=== PATIENT | female | born 1960 | race Caucasian/White ===

== ENCOUNTER 2021-11-19 13:46 | Inpatient (IN) ==
[2021-11-19] MEDS ORDERED: Ondansetron 4 MG/2 ML VIAL IVP PRN (17:36)
[2021-11-19] MEDS ORDERED: Naloxone 0.4 MG/ML INJ IVP PRN (17:36)
[2021-11-19] MEDS ORDERED: *HR* Dextrose 50 % in Water (Syg) 50 ML SYRINGE IVP PRN (17:52)
[2021-11-19] MEDS ORDERED: Dextrose Gel 15 GM/37.5 ML TUBE PO PRN ×2 (17:52)
[2021-11-19] MEDS ORDERED: D5% in Water 1,000 ML IVC PRN (17:52)
[2021-11-19] MEDS ORDERED: 0.9 % Sodium Chloride 1,000 ML IVC SCH (18:00)
[2021-11-19 18:47] LABS: Basophils % 0.2 %; Eosinophils % 0.3 %; Hematocrit 38.1 % (35.3-44.9); Hemoglobin 12.1 g/dL (11.5-15.4); Immature Granulocytes % 0.4 % (0-4); Lymphocytes # 1.5 K/mcL (0.6-4.6); Lymphocytes % 11.1 %; Mean Corpuscular HGB Conc 31.8 g/dL (31.6-35.5); Mean Corpuscular Hemoglobin 25.7 pg (28.0-33.3); Mean Corpuscular Volume 81.1 fL (83.0-100.0); Mean Platelet Volume 8.9 fL (9.4-12.4); Monocytes # 0.7 K/mcL (0.0-1.3); Monocytes % 5.7 %; Neutrophils # 10.8 K/mcL (1.6-8.9); Platelet Count 375 K/mcL (140-400); Segmented Neutrophils % 82.3 %; White Blood Count 13.1 K/mcL (4.3-11.1)
[2021-11-19 18:52] LABS: INR 1.3; Prothrombin Time 14.3 Seconds (9.4-12.1)
[2021-11-19 19:02] LABS: Alanine Aminotransferase 16 Units/L (7-52); Albumin 3.1 g/dL (3.5-5.7); Alkaline Phosphatase 77 Units/L (34-104); Amylase 13 Units/L (29-103); Aspartate Amino Transferase 20 Units/L (13-39); BUN/Creatinine Ratio 16 (6-26); Bilirubin,Total 0.3 mg/dL (0.3-1.0); Blood Urea Nitrogen 17 mg/dL (6-20); Calcium 8.7 mg/dL (8.6-10.3); Carbon Dioxide 25 mEq/L (23-29); Chloride 103 mEq/L (98-107); Globulin 3.2 g/dL (2.4-3.5); Glucose 173 mg/dL (70-105); Lipase 12 Units/L (11-82); Osmolality,Calculated 286 (280-300); Potassium 3.9 mEq/L (3.5-5.1); Sodium 135 mEq/L (136-145); Total Protein 6.3 g/dL (6.4-8.9); eGFR For African Americans > 60 (> 60); eGFR For Non-African Americans 51 (> 60)
[2021-11-19 19:03] LABS: Magnesium 1.9 mg/dL (1.6-2.6)
[2021-11-19 19:17] LABS: Thyroid Stimulating Hormone 1.158 mcIU/mL (0.340-5.600)
[2021-11-19] MEDS: Insulin LISPRO 300 UNITS/3 ML VIAL SUBQ SCH (19:26)
[2021-11-19] MEDS: Ipratropium/Albuterol Neb 3 ML IH SCH (19:56)
[2021-11-19 20:45] LABS: Estimated Average Glucose 134 mg/dl; Hemoglobin A1C 6.3 %
[2021-11-19] MEDS: levoFLOXacin 750 MG/150 ML 750 MG/150 ML BAG IVPB SCH (21:42)
[2021-11-19] MEDS: *HR* Heparin 5,000 UNIT/ML VIAL SQ SCH (21:54)
[2021-11-19 23:31] LABS: Bilirubin,Urine Negative (Negative); Blood,Urine Large (Negative); Clarity,Urine Turbid (Clear); Color,Urine Yellow (Yellow); Glucose,Urine (UA) 30 mg/dL (Normal); Hyaline Casts,Urine Few per lpf (None Seen); Ketones,Urine 20 mg/dL (Negative); Leukocyte Esterase,Urine Small (Negative); Mucus,Urine Many per lpf (None-Few); Nitrite,Urine Negative (Negative); PH,Urine 5.5 pH Units (5.0-8.0); Protein,Urine 70 mg/dL (Neg-Trace); RBC,Urine TNTC per hpf (0-3); Specific Gravity,Urine 1.024 (1.010-1.025); Squamous Epithelial Cell,Urine Few per hpf (None-Few); Urobilinogen,Urine Normal (Normal); WBC,Urine 15-30 per hpf (0-3)
[2021-11-20] MEDS: MethylPREDNISolone 40 MG/ML VIAL IVP SCH ×2 (00:22→08:28)
[2021-11-20] MEDS: MetroNIDAZOLE 500 MG/100 ML 500 MG/100 ML BAG IVPB SCH ×4 (00:24→23:37)
[2021-11-20] MEDS: Insulin LISPRO 300 UNITS/3 ML VIAL SUBQ SCH ×5 (00:25→20:52)
[2021-11-20 02:06] LABS: Hematocrit 36.5 % (35.3-44.9); Hemoglobin 11.6 g/dL (11.5-15.4); Mean Corpuscular HGB Conc 31.8 g/dL (31.6-35.5); Mean Corpuscular Hemoglobin 25.9 pg (28.0-33.3); Mean Corpuscular Volume 81.5 fL (83.0-100.0); Mean Platelet Volume 8.9 fL (9.4-12.4); Platelet Count 331 K/mcL (140-400); Red Blood Count 4.48 M/mcL (3.82-4.97); Red Cell Distribution Width 14.2 % (11.5-14.5); White Blood Count 12.3 K/mcL (4.3-11.1)
[2021-11-20 02:20] LABS: BUN/Creatinine Ratio 15 (6-26); Blood Urea Nitrogen 17 mg/dL (6-20); Calcium 8.4 mg/dL (8.6-10.3); Carbon Dioxide 24 mEq/L (23-29); Chloride 103 mEq/L (98-107); Chol/HDL Ratio 5.3 (0-4.9); Cholesterol 147 mg/dL (< 200); Glucose 155 mg/dL (70-105); HDL Cholesterol 28 mg/dL (40-59); LDL Cholesterol,Calculated 90 mg/dL (< 100); Osmolality,Calculated 285 (280-300); Potassium 4.1 mEq/L (3.5-5.1); Sodium 135 mEq/L (136-145); Triglycerides 143 mg/dL (< 150); eGFR For African Americans > 60 (> 60); eGFR For Non-African Americans 50 (> 60)
[2021-11-20] MEDS: Ipratropium/Albuterol Neb 3 ML IH SCH ×4 (03:58→21:25)
[2021-11-20] MEDS: *HR* Heparin 5,000 UNIT/ML VIAL SQ SCH ×3 (05:27→20:45)
[2021-11-20] MEDS ORDERED: 0.9 % Sodium Chloride 1,000 ML IVC SCH (07:45)
[2021-11-20] MEDS: Pantoprazole 40 MG VIAL IVP SCH (08:29)
[2021-11-20] MEDS ORDERED: Iopamidol - 370 500 ML MLS IVP ONE (13:39)
[2021-11-20] MEDS ORDERED: Iopamidol - 370 500 ML MLS PO ONE (16:45)
[2021-11-20] MEDS: levoFLOXacin 750 MG/150 ML 750 MG/150 ML BAG IVPB SCH (20:41)
[2021-11-21] MEDS: Ipratropium/Albuterol Neb 3 ML IH SCH ×4 (04:06→22:16)
[2021-11-21] MEDS: *HR* Heparin 5,000 UNIT/ML VIAL SQ SCH ×3 (05:37→19:42)
[2021-11-21 06:34] LABS: Basophils % 0.1 %; Hematocrit 38.6 % (35.3-44.9); Hemoglobin 12.4 g/dL (11.5-15.4); Immature Granulocytes % 0.8 % (0-4); Mean Corpuscular HGB Conc 32.1 g/dL (31.6-35.5); Mean Corpuscular Hemoglobin 25.6 pg (28.0-33.3); Mean Corpuscular Volume 79.8 fL (83.0-100.0); Mean Platelet Volume 8.8 fL (9.4-12.4); Monocytes # 1.2 K/mcL (0.0-1.3); Monocytes % 5.3 %; Neutrophils # 18.8 K/mcL (1.6-8.9); Platelet Count 438 K/mcL (140-400); Red Blood Count 4.84 M/mcL (3.82-4.97); Segmented Neutrophils % 85.8 %
[2021-11-21 06:35] LABS: Lymphocytes # 1.8 K/mcL (0.6-4.6); White Blood Count 21.9 K/mcL (4.3-11.1)
[2021-11-21 06:54] LABS: BUN/Creatinine Ratio 18 (6-26); Blood Urea Nitrogen 19 mg/dL (6-20); Calcium 9.1 mg/dL (8.6-10.3); Carbon Dioxide 26 mEq/L (23-29); Chloride 101 mEq/L (98-107); Glucose 213 mg/dL (70-105); Osmolality,Calculated 289 (280-300); Potassium 3.9 mEq/L (3.5-5.1); Sodium 135 mEq/L (136-145); eGFR For African Americans > 60 (> 60); eGFR For Non-African Americans 54 (> 60)
[2021-11-21] MEDS: MetroNIDAZOLE 500 MG/100 ML 500 MG/100 ML BAG IVPB SCH ×3 (08:28→22:53)
[2021-11-21] MEDS: Insulin LISPRO 300 UNITS/3 ML VIAL SUBQ SCH ×4 (08:28→19:41)
[2021-11-21] MEDS: Furosemide 20 MG TABLET PO SCH (08:29)
[2021-11-21] MEDS: Aspirin Enteric Coated 81 MG Tablet PO SCH (08:29)
[2021-11-21] MEDS ORDERED: predniSONE 20 MG TABLET PO SCH (09:00)
[2021-11-21] MEDS: Pantoprazole 40 MG VIAL IVP SCH (09:32)
[2021-11-21] MEDS: levoFLOXacin 750 MG/150 ML 750 MG/150 ML BAG IVPB SCH (19:47)
[2021-11-22 01:32] LABS: Basophils % 0.1 %; Hemoglobin 12.2 g/dL (11.5-15.4); Immature Granulocytes % 0.6 % (0-4); Lymphocytes # 1.1 K/mcL (0.6-4.6); Lymphocytes % 6.2 %; Mean Corpuscular HGB Conc 32.1 g/dL (31.6-35.5); Mean Corpuscular Hemoglobin 25.5 pg (28.0-33.3); Mean Corpuscular Volume 79.5 fL (83.0-100.0); Mean Platelet Volume 8.9 fL (9.4-12.4); Monocytes % 5.3 %; Neutrophils # 15.8 K/mcL (1.6-8.9); Platelet Count 401 K/mcL (140-400); Red Blood Count 4.78 M/mcL (3.82-4.97); Red Cell Distribution Width 14.3 % (11.5-14.5); Segmented Neutrophils % 87.8 %
[2021-11-22 01:42] LABS: Alanine Aminotransferase 25 Units/L (7-52); Albumin 3.2 g/dL (3.5-5.7); Alkaline Phosphatase 71 Units/L (34-104); Aspartate Amino Transferase 29 Units/L (13-39); BUN/Creatinine Ratio 17 (6-26); Bilirubin,Total 0.2 mg/dL (0.3-1.0); Blood Urea Nitrogen 18 mg/dL (6-20); Calcium 9.1 mg/dL (8.6-10.3); Carbon Dioxide 29 mEq/L (23-29); Chloride 101 mEq/L (98-107); Globulin 3.1 g/dL (2.4-3.5); Glucose 212 mg/dL (70-105); Lactate Dehydrogenase 447 Units/L (140-271); Osmolality,Calculated 288 (280-300); Sodium 135 mEq/L (136-145); Total Protein 6.3 g/dL (6.4-8.9); eGFR For African Americans > 60 (> 60); eGFR For Non-African Americans 52 (> 60)
[2021-11-22] MEDS: Ipratropium/Albuterol Neb 3 ML IH SCH ×3 (04:14→15:20)
[2021-11-22] MEDS: *HR* Heparin 5,000 UNIT/ML VIAL SQ SCH ×2 (05:48→15:49)
[2021-11-22] MEDS: Furosemide 20 MG TABLET PO SCH (08:29)
[2021-11-22] MEDS: Pantoprazole 40 MG VIAL IVP SCH (08:29)
[2021-11-22] MEDS: Aspirin Enteric Coated 81 MG Tablet PO SCH (08:29)
[2021-11-22] MEDS: MetroNIDAZOLE 500 MG/100 ML 500 MG/100 ML BAG IVPB SCH (08:36)
[2021-11-22] MEDS: Insulin LISPRO 300 UNITS/3 ML VIAL SUBQ SCH ×2 (08:43→11:32)
[2021-11-22] MEDS ORDERED: predniSONE 20 MG TABLET PO SCH (09:00)
[2021-11-22] MEDS ORDERED: Iopamidol - 370 500 ML MLS IVP ONE (10:37)
[2021-11-22 14:16] VITALS: BP 147/82; PULSE 98; TEMP 98; O2SAT 96
[2021-11-22] MEDS ORDERED: GI Cocktail 40 ML EACH PO ONE (14:31)
[2021-11-22] MEDS ORDERED: metroNIDAZOLE 500 MG TABLET PO SCH (15:00)
[2021-11-22 16:07] LABS: RBC,Pleural Fluid 5000 RBC/mcL
[2021-11-22 16:08] LABS: Total Protein,Pleural Fluid 3.9 g/dL
[2021-11-22 17:06] LABS: Appearance of Pleural Fl Cloudy (Clear)
[2021-11-22 17:34] LABS: Basophils,Pleural Fluid 0 %; Eosinophils,Pleural Fluid 0 %
[2021-11-22] MEDS ORDERED: levoFLOXacin 750 MG TABLET PO SCH (19:00)
[2021-11-23] MEDS ORDERED: levoFLOXacin 750 MG TABLET PO SCH (09:00)
[2021-12-01 22:34] LABS: Fluid Source for Albumin PLEURAL FL
== END 2021-11-22 17:46 | disposition left against medical advice (07) ==
LOC: 3ANU → SUATTDRO 16:12
PROVIDERS: ADMIT Family Medicine; ATTEND General Practice

== ENCOUNTER 2021-12-09 13:36 | Inpatient (IN) ==
[2021-12-09] MEDS ORDERED: Naloxone 0.4 MG/ML INJ IVP PRN (16:12)
[2021-12-09] MEDS ORDERED: *HR* HYDROcodone/Acet 5/325 mg TABLET PO PRN (16:12)
[2021-12-09] MEDS ORDERED: 0.9 % Sodium Chloride 1,000 ML IVC SCH (16:15)
[2021-12-09] MEDS ORDERED: Ipratropium/Albuterol Neb 3 ML IH PRN (16:19)
[2021-12-09] MEDS ORDERED: D5% in Water 1,000 ML IVC PRN (16:23)
[2021-12-09] MEDS ORDERED: *HR* Dextrose 50 % in Water (Syg) 50 ML SYRINGE IVP PRN (16:23)
[2021-12-09] MEDS ORDERED: Dextrose Gel 15 GM/37.5 ML TUBE PO PRN ×2 (16:23)
[2021-12-09] MEDS ORDERED: levoFLOXacin 750 MG/150 ML 750 MG/150 ML BAG IVPB ONE (17:00)
[2021-12-09 17:14] LABS: Prothrombin Time 11.4 Seconds (9.4-12.1)
[2021-12-09 17:17] LABS: Activated Partial Thrombo Time 31.2 Seconds (26.0-36.0)
[2021-12-09 17:26] LABS: Albumin 2.9 g/dL (3.5-5.7); Albumin/Globulin Ratio 0.8 (1.1-2.2); Bilirubin,Total 0.3 mg/dL (0.3-1.0); Calcium 8.1 mg/dL (8.6-10.3); Globulin 3.7 g/dL (2.4-3.5); Potassium 5.4 mEq/L (3.5-5.1); Total Protein 6.6 g/dL (6.4-8.9)
[2021-12-09] MEDS: Insulin LISPRO 300 UNITS/3 ML VIAL SUBQ SCH (17:28)
[2021-12-09] MEDS: *HR* Heparin 5,000 UNIT/ML VIAL SQ SCH (17:31)
[2021-12-09] MEDS: *HR* OxyCODONE Immed Rel 5 MG TABLET PO PRN ×2 (17:32→23:38)
[2021-12-09] MEDS: Ondansetron 4 MG/2 ML VIAL IVP PRN (17:43)
[2021-12-09 18:11] LABS: Basophils % 0.2 %; Eosinophils % 0.2 %; Hematocrit 38.3 % (35.3-44.9); Hemoglobin 12.1 g/dL (11.5-15.4); Immature Granulocytes % 0.7 % (0-4); Lymphocytes # 0.9 K/mcL (0.6-4.6); Lymphocytes % 4.9 %; Mean Corpuscular HGB Conc 31.6 g/dL (31.6-35.5); Mean Corpuscular Hemoglobin 25.7 pg (28.0-33.3); Mean Corpuscular Volume 81.3 fL (83.0-100.0); Mean Platelet Volume 8.5 fL (9.4-12.4); Monocytes # 0.8 K/mcL (0.0-1.3); Monocytes % 4.3 %; Neutrophils # 16.3 K/mcL (1.6-8.9); Platelet Count 597 K/mcL (140-400); Red Blood Count 4.71 M/mcL (3.82-4.97); Segmented Neutrophils % 89.7 %; White Blood Count 18.1 K/mcL (4.3-11.1)
[2021-12-09] MEDS: Albumin 25% 25gram/100mL 25 GM/100 ML IV.SOLN IVPB SCH (23:44)
[2021-12-10] MEDS ORDERED: *HR* HYDROmorphone (PF) 1 MG/ML SYRINGE IVP ONE (01:30)
[2021-12-10] MEDS: *HR* Heparin 5,000 UNIT/ML VIAL SQ SCH ×3 (05:59→20:40)
[2021-12-10] MEDS: Insulin LISPRO 300 UNITS/3 ML VIAL SUBQ SCH ×3 (07:29→16:29)
[2021-12-10] MEDS: Albumin 25% 25gram/100mL 25 GM/100 ML IV.SOLN IVPB SCH ×2 (07:47→16:28)
[2021-12-10 08:11] LABS: Basophils % 0.2 %; Eosinophils % 0.2 %; Hematocrit 37.4 % (35.3-44.9); Hemoglobin 11.7 g/dL (11.5-15.4); Immature Granulocytes % 0.6 % (0-4); Lymphocytes # 0.9 K/mcL (0.6-4.6); Lymphocytes % 4.7 %; Mean Corpuscular HGB Conc 31.3 g/dL (31.6-35.5); Mean Corpuscular Hemoglobin 25.5 pg (28.0-33.3); Mean Corpuscular Volume 81.5 fL (83.0-100.0); Mean Platelet Volume 8.5 fL (9.4-12.4); Monocytes # 0.8 K/mcL (0.0-1.3); Monocytes % 4.4 %; Neutrophils # 17.4 K/mcL (1.6-8.9); Platelet Count 543 K/mcL (140-400); Red Blood Count 4.59 M/mcL (3.82-4.97); Segmented Neutrophils % 89.9 %; White Blood Count 19.3 K/mcL (4.3-11.1)
[2021-12-10 08:28] LABS: Calcium 8.2 mg/dL (8.6-10.3); Potassium 4.9 mEq/L (3.5-5.1)
[2021-12-10] MEDS: *HR* OxyCODONE Immed Rel 5 MG TABLET PO PRN ×2 (14:37→20:40)
[2021-12-10 15:32] LABS: RBC,Peritoneal Fluid 7000 RBC/mcL
[2021-12-10 17:20] LABS: Appearance of Peritoneal Fl HAZY (Clear)
[2021-12-10] MEDS: methocarbamoL 750 MG TABLET PO SCH (20:40)
[2021-12-10] MEDS ORDERED: Melatonin 3 MG TABLET PO PRN (21:52)
[2021-12-11] MEDS: Albumin 25% 25gram/100mL 25 GM/100 ML IV.SOLN IVPB SCH ×4 (00:03→23:18)
[2021-12-11] MEDS: Ondansetron 4 MG/2 ML VIAL IVP PRN ×2 (00:43→08:36)
[2021-12-11 01:27] LABS: Basophils % 0.1 %; Eosinophils % 0.1 %; Hematocrit 32.9 % (35.3-44.9); Hemoglobin 10.5 g/dL (11.5-15.4); Immature Granulocytes % 0.7 % (0-4); Lymphocytes % 5.4 %; Mean Corpuscular HGB Conc 31.9 g/dL (31.6-35.5); Mean Corpuscular Hemoglobin 25.8 pg (28.0-33.3); Mean Corpuscular Volume 80.8 fL (83.0-100.0); Mean Platelet Volume 8.5 fL (9.4-12.4); Monocytes # 0.8 K/mcL (0.0-1.3); Neutrophils # 16.9 K/mcL (1.6-8.9); Platelet Count 497 K/mcL (140-400); Red Blood Count 4.07 M/mcL (3.82-4.97); Segmented Neutrophils % 89.7 %; White Blood Count 18.9 K/mcL (4.3-11.1)
[2021-12-11 01:47] LABS: Calcium 7.5 mg/dL (8.6-10.3); Phosphorous 10.2 mg/dL (2.7-4.5); Potassium 5.1 mEq/L (3.5-5.1); Uric Acid 14.3 mg/dL (2.3-7.6)
[2021-12-11 02:01] LABS: Thyroid Stimulating Hormone 3.779 mcIU/mL (0.340-5.600)
[2021-12-11 02:12] LABS: Folate 3.7 ng/mL (3.0-16.0); Vitamin D 25 Hydroxy 5 ng/mL (30-80)
[2021-12-11 02:13] LABS: Vitamin B12 812 pg/mL (250-1100)
[2021-12-11 03:23] LABS: Bacteria,Urine Few per hpf (None-Few); Bilirubin,Urine Negative (Negative); Blood,Urine Moderate (Negative); Clarity,Urine Clear (Clear); Color,Urine Light-Yellow (Yellow); Glucose,Urine (UA) Normal (Normal); Hyaline Casts,Urine Moderate per lpf (None Seen); Ketones,Urine Negative (Negative); Leukocyte Esterase,Urine Negative (Negative); Mucus,Urine Few per lpf (None-Few); Nitrite,Urine Negative (Negative); PH,Urine 5.5 pH Units (5.0-8.0); Protein,Urine 50 mg/dL (Neg-Trace); Squamous Epithelial Cell,Urine Few per hpf (None-Few); Urobilinogen,Urine Normal (Normal); WBC,Urine 0-3 per hpf (0-3)
[2021-12-11 03:32] LABS: Protein/Creatinine Ratio,Urine 0.44 mg/mg (0.00-0.20); Sodium, Urine 22.6 mEq/L
[2021-12-11] MEDS: *HR* Heparin 5,000 UNIT/ML VIAL SQ SCH ×3 (04:47→20:59)
[2021-12-11 06:44] LABS: Hepatitis B Surface Antigen Nonreactive (Nonreactive)
[2021-12-11 07:13] LABS: Hepatitis B Core IgM Nonreactive (Nonreactive)
[2021-12-11 07:14] LABS: Hepatitis C Virus Antibody Nonreactive (Nonreactive)
[2021-12-11 07:15] LABS: Hepatitis A Antibody IgM Nonreactive (Nonreactive)
[2021-12-11] MEDS: Insulin LISPRO 300 UNITS/3 ML VIAL SUBQ SCH ×3 (07:26→16:26)
[2021-12-11] MEDS: methocarbamoL 750 MG TABLET PO SCH ×2 (08:22→20:59)
[2021-12-11] MEDS ORDERED: Aspirin Enteric Coated 81 MG Tablet PO SCH (09:00)
[2021-12-11] MEDS ORDERED: Ergocalciferol (VIT D2) 50,000 UNIT (1.25MG) CAP PO SCH ×2 (13:45→15:58)
[2021-12-11] MEDS ORDERED: *HR* Propofol 200 MG/20 ML VIAL IVP ONE (13:55)
[2021-12-11] MEDS ORDERED: Ondansetron 4 MG/2 ML VIAL ONE (13:57)
[2021-12-11] MEDS ORDERED: Lidocaine -MPF 2% 5 ML VIAL ONE (13:57)
[2021-12-11] MEDS ORDERED: *HR* Succinylcholine 200 MG/10 ML VIAL IVP ONE (13:57)
[2021-12-11] MEDS ORDERED: *HR* FentaNYL (PF) 100 MCG/2 ML VIAL ONE (13:58)
[2021-12-11] MEDS ORDERED: LEVOFLOXACIN IVPB ONE (14:10)
[2021-12-11] MEDS ORDERED: Lidocaine HCL 4 ML Topical Solution (Laryng-O-Jet Kit Sterile Pak) TP ONE (14:32)
[2021-12-11] MEDS ORDERED: levoFLOXacin 500 MG/100 ML 500 MG/100 ML BAG IVPB SCH (15:00)
[2021-12-11] MEDS ORDERED: Naloxone 0.4 MG/ML INJ IVP PRN (15:58)
[2021-12-11] MEDS ORDERED: *HR* OxyCODONE Immed Rel 5 MG TABLET PO PRN (15:58)
[2021-12-11] MEDS ORDERED: Dextrose Gel 15 GM/37.5 ML TUBE PO PRN ×2 (15:58)
[2021-12-11] MEDS ORDERED: *HR* Dextrose 50 % in Water (Syg) 50 ML SYRINGE IVP PRN (15:58)
[2021-12-11] MEDS ORDERED: Ondansetron 4 MG/2 ML VIAL IVP PRN (15:58)
[2021-12-11] MEDS ORDERED: Ipratropium/Albuterol Neb 3 ML IH PRN (15:58)
[2021-12-11] MEDS ORDERED: D5% in Water 1,000 ML IVC PRN (15:58)
[2021-12-11] MEDS: Calcium Acetate 667 MG CAPSULE PO SCH (16:35)
[2021-12-11] MEDS ORDERED: Calcium Acetate 667 MG CAPSULE PO SCH (17:00)
[2021-12-11] MEDS: Melatonin 3 MG TABLET PO PRN (20:58)
[2021-12-12 05:02] LABS: Basophils % 0.1 %; Hematocrit 32.8 % (35.3-44.9); Hemoglobin 10.3 g/dL (11.5-15.4); Immature Granulocytes % 0.6 % (0-4); Lymphocytes # 0.4 K/mcL (0.6-4.6); Lymphocytes % 2.6 %; Mean Corpuscular HGB Conc 31.4 g/dL (31.6-35.5); Mean Corpuscular Hemoglobin 25.8 pg (28.0-33.3); Mean Corpuscular Volume 82.2 fL (83.0-100.0); Mean Platelet Volume 8.8 fL (9.4-12.4); Monocytes # 0.2 K/mcL (0.0-1.3); Monocytes % 1.3 %; Neutrophils # 15.3 K/mcL (1.6-8.9); Platelet Count 479 K/mcL (140-400); Red Blood Count 3.99 M/mcL (3.82-4.97); Red Cell Distribution Width 17.1 % (11.5-14.5); Segmented Neutrophils % 95.4 %
[2021-12-12 05:23] LABS: Calcium 7.7 mg/dL (8.6-10.3); Potassium 5.7 mEq/L (3.5-5.1)
[2021-12-12] MEDS: *HR* Heparin 5,000 UNIT/ML VIAL SQ SCH ×3 (05:27→20:49)
[2021-12-12] MEDS ORDERED: Sennosides 8.6 MG TABLET PO PRN (08:32)
[2021-12-12] MEDS ORDERED: polyethylene glycoL 3350 17 GM POWD.PACK PO PRN (08:32)
[2021-12-12] MEDS: Aspirin Enteric Coated 81 MG Tablet PO SCH (09:50)
[2021-12-12] MEDS: methocarbamoL 750 MG TABLET PO SCH ×2 (09:50→20:45)
[2021-12-12] MEDS: Calcium Acetate 667 MG CAPSULE PO SCH ×3 (09:55→16:51)
[2021-12-12] MEDS: Insulin LISPRO 300 UNITS/3 ML VIAL SUBQ SCH ×3 (09:56→16:45)
[2021-12-12] MEDS ORDERED: Albumin 25% 25gram/100mL 25 GM/100 ML IV.SOLN IVPB SCH (13:00)
[2021-12-12] MEDS ORDERED: SODIUM ZIRCONIUM CYCLOSILICATE 5 GM POWD.PACK PO ONE (13:43)
[2021-12-12] MEDS ORDERED: Sodium Bicarbonate 75 MEQ in 0.45 % Sodium Chloride 1,000 ML IVC SCH (14:00)
[2021-12-12] MEDS ORDERED: hydrOXYzine pamoate 25 MG CAPSULE PO PRN ×2 (17:17→17:33)
[2021-12-12] MEDS: Melatonin 3 MG TABLET PO PRN (20:45)
[2021-12-12 23:05] LABS: Fluid Source for Albumin ASCITES
[2021-12-13] MEDS: *HR* Heparin 5,000 UNIT/ML VIAL SQ SCH ×2 (05:25→15:41)
[2021-12-13 08:05] VITALS: TEMP 97.4
[2021-12-13] MEDS: Calcium Acetate 667 MG CAPSULE PO SCH ×3 (08:36→12:45)
[2021-12-13] MEDS: Aspirin Enteric Coated 81 MG Tablet PO SCH (08:36)
[2021-12-13] MEDS: Insulin LISPRO 300 UNITS/3 ML VIAL SUBQ SCH (08:36)
[2021-12-13] MEDS: methocarbamoL 750 MG TABLET PO SCH (08:36)
[2021-12-13 09:23] LABS: Basophils % 0.1 %; Hematocrit 38.5 % (35.3-44.9); Hemoglobin 12.3 g/dL (11.5-15.4); Immature Granulocytes % 0.8 % (0-4); Lymphocytes # 0.8 K/mcL (0.6-4.6); Lymphocytes % 3.6 %; Mean Corpuscular HGB Conc 31.9 g/dL (31.6-35.5); Mean Corpuscular Hemoglobin 25.5 pg (28.0-33.3); Mean Corpuscular Volume 79.9 fL (83.0-100.0); Mean Platelet Volume 8.7 fL (9.4-12.4); Monocytes # 1.1 K/mcL (0.0-1.3); Neutrophils # 19.2 K/mcL (1.6-8.9); Platelet Count 565 K/mcL (140-400); Red Blood Count 4.82 M/mcL (3.82-4.97); Red Cell Distribution Width 17.1 % (11.5-14.5); Segmented Neutrophils % 90.5 %; White Blood Count 21.2 K/mcL (4.3-11.1)
[2021-12-13 09:41] LABS: Calcium 8.9 mg/dL (8.6-10.3); Potassium 5.7 mEq/L (3.5-5.1)
[2021-12-13] MEDS ORDERED: SODIUM ZIRCONIUM CYCLOSILICATE 5 GM POWD.PACK PO ONE (09:48)
[2021-12-13] MEDS ORDERED: Calcium Gluconate 1gm/50mL 1 GM/50 ML BAG IVPB ONE (09:50)
[2021-12-13] MEDS ORDERED: Insulin LISPRO 300 UNITS/3 ML VIAL SUBQ SCH (09:52)
[2021-12-13] MEDS ORDERED: 0.9 % Sodium Chloride 1,000 ML IVC SCH (12:45)
[2021-12-13 12:51] VITALS: BP 138/60; PULSE 108; O2SAT 96
[2021-12-13] MEDS ORDERED: levoFLOXacin 500 MG/100 ML 500 MG/100 ML BAG IVPB SCH (15:00)
[2021-12-13] MEDS ORDERED: SODIUM ZIRCONIUM CYCLOSILICATE 5 GM POWD.PACK PO SCH (15:00)
[2021-12-13] MEDS ORDERED: levoFLOXacin 750 MG/150 ML 750 MG/150 ML BAG IVPB SCH (15:00)
[2021-12-16 10:18] LABS: Urine Collection Volume NOT PROVIDED mL
== END 2021-12-13 18:39 | disposition home or self-care (01) | DRG 420 ==
LOC: INTOOBSV 15:42 → 2NENU 15:42
PROVIDERS: ADMIT Internal Medicine; ATTEND Internal Medicine